=== PATIENT | male | born 2000 | race Hispanic/Latino ===

== ENCOUNTER 2022-06-28 19:00 | Emergency (ER) | payer BC, OTHER ==
[2022-06-28] MEDS ORDERED: Lidocaine 1% (PF) 30 ML VIAL ONE (19:55)
[2022-06-28] MEDS ORDERED: Ketorolac Tromethamine 30 MG/ML VIAL ONE (21:04)
== END 2022-06-28 21:11 | disposition home or self-care (01) ==
LOC: CSHERS 19:00
DX: S02.2XXA Fracture of nasal bones, initial encounter for closed fracture (principal); W22.8XXA Striking against or struck by other objects, initial encounter
CPT/HCPCS: 21320; 70486; 96372; J1885; J2001